=== PATIENT | female | born 1950 | race African-American/Black ===

== ENCOUNTER 2018-12-26 07:29 | Inpatient (IN) | payer BC ==
[2018-12-22 11:08] VITALS: BMI 29.2
[2018-12-26] MEDS: oxyCODONE HCL 10 MG SUSTAINED ACTING TABLET PO ONE ×2 (09:03→15:04)
[2018-12-26] MEDS ORDERED: GUM MASTIC/STORAX/MSAL/ALCOHOL 1 DRP DROPSBTL MC ONE (10:48)
[2018-12-26] MEDS ORDERED: THROMBIN (RECOMBINANT) 5,000 UNIT VIAL TP ONE (10:48)
[2018-12-26] MEDS ORDERED: MIDAZOLAM HCL 2 MG/2 ML SINGLE DOSE VIAL ONE ×2 (10:52→11:40)
[2018-12-26] MEDS ORDERED: BUPIVACAINE LIPOSOME/PF (EXPAREL) 266 MG/20 ML VIAL ONE (10:52)
[2018-12-26] MEDS ORDERED: BUPIVACAINE HCL/PF 2.5 MG/ML - 30 ML VIAL IJ ONE (10:52)
--- NOTE | 2018-12-26 10:55 | HP ---
History & Physical Update - History History: No Change - Physical Physical: No Change - Assessment Assessment: No Change - Plan Plan: No Change
[2018-12-26] MEDS ORDERED: ceFAZolin SODIUM 1 GM VIAL ONE (11:40)
[2018-12-26] MEDS ORDERED: DEXAMETHASONE SOD PHOSPHATE 4 MG/1 ML VIAL ONE (11:40)
[2018-12-26] MEDS ORDERED: ONDANSETRON 4 MG/2 ML VIAL ONE (11:40)
[2018-12-26] MEDS ORDERED: oxyCODONE HCL 5 MG TABLET PO PRN (14:03)
--- NOTE | 2018-12-26 14:03 | OP ---
Operative Note - Note: Operative Date: 12/26/18 Pre-Operative Diagnosis: lumbar sponhylolisthesis Operation: posterior decompression, instrumentation, fusion. transforaminal interbody lumbar fusion of L4-L5 with allograft and neuromonitoring Surgeon: Hema Gibbs Line Camera Operator: Susie Leslie Anesthesiologist/TEAM ASSISTANT: Volodymyr Bellamy Anesthesia: Spinal Estimated Blood Loss (mls): 20 Fluid Volume Replaced (mls): 300 Operative Report Dictated: Yes
--- NOTE | 2018-12-26 14:04 | SURG ---
Surgery Lifts And Cranes Inspector Note Lifts And Cranes Inspector: Susie Leslie PA-C Date of Service: 12/26/18 Diagnosis: lumbar spondylolisthesis Procedure: posterior lumbar decompression, instrumentation, fusion. transforaminal interbody lumbar fusion of L4-L5 with allograft and neuromonitoring I was present for the entirety of the operative procedure. For further detail, please refer to operative report. Visit type - Case Type Case Type: Scheduled - Emergency Emergency Visit: No - New patient This patient is new to me today: Yes Date on this admission: 12/26/18
[2018-12-26] MEDS: ONDANSETRON 4 MG/2 ML VIAL IVPUSH PRN (14:12)
[2018-12-26] MEDS ORDERED: ACETAMINOPHEN 325 MG TABLET (FP) PO SCH (14:15)
[2018-12-26] MEDS ORDERED: LACTATED RINGERS SOLUTION 1,000 ML IV SCH (14:15)
[2018-12-26] MEDS ORDERED: ACETAMINOPHEN 1000 MG/100 ML VIAL (NON FORMULARY) IVPB SCH (16:00)
[2018-12-26] MEDS: diazePAM 2 MG TABLET PO SCH (17:33)
[2018-12-26] MEDS: CEFAZOLIN 1 GM in DEXTROSE 5%-WATER - 50 ML IVPB SCH (19:22)
[2018-12-26] MEDS: oxyCODONE HCL 5 MG TABLET PO PRN (19:23)
--- NOTE | 2018-12-26 20:34 | OP ---
DATE OF OPERATION: 12/26/2018 PREOPERATIVE DIAGNOSES: 1. Spondylolisthesis, L4-5. 2. Spinal stenosis at L4-5. POSTOPERATIVE DIAGNOSES: 1. Spondylolisthesis, L4-5. 2. Spinal stenosis at L4-5. PROCEDURE PERFORMED: 1. Transforaminal lumbar interbody fusion, L4-5. 2. Placement of instrumentation. 3. Placement of cage. SURGEON: Hema Gibbs MD ADOBE ARCHITECT: LILLIAN Ashraf ESTIMATED BLOOD LOSS: 50 mL. INTRAVENOUS FLUIDS: Per Anesthesia. ANESTHESIA: Spinal/TLIP. COMPLICATIONS: None. DISPOSITION: Patient was brought to the PACU in stable condition. INDICATION FOR SURGERY: The patient is a 68-year-old female who has been suffering from pain from her back down her legs. X-rays and MRI were completed which noted that she had spinal stenosis at L4-5 secondary to a spondylolisthesis. She had gone through an exhaustive course of treatment for this which included medications, physical therapy, as well as injections. Unfortunately, her pain continued to persist despite all this. At this point, risks, benefits, and alternatives were discussed, and the patient consented to surgery. DESCRIPTION OF PROCEDURE: Patient was brought to the operating room by the anesthesia staff. After appropriate patient identification was performed, spinal anesthesia was given along with a TLIP block. Patient was able to position herself prone onto the OR table with all areas of bony prominences well padded at this time. The C-arm was brought in. The L4 and L5 pedicles were marked off. Her back was prepped and draped in a sterile manner. At this point, timeout was completed. Incisions were made bilaterally over the L4 and L5 pedicles. Dissection was carried down to the fascia. Fascia was split at this time. Under C-arm guidance, trocars were advanced into both the L4 and L5 pedicles. Through the trocars, wire was inserted. Over the wire, tap was performed, and screws were inserted. On the left-hand side, retractor blades were set up to expose the L4-5 facet joint. The facet joint was identified, and it was removed. The disk was entered using a series of pituitaries, Kerrisons, and curettes. A diskectomy was completed. The endplates were decorticated at this time. Bone graft was laid down. A cage filled with bone graft was placed in. Tulip pads were placed over the screws. A momo was measured and placed in. Caps were placed on. Compression was applied, and final tightening was performed. On the right-hand side, a momo was measured and placed in. Caps and compression were applied. Final tightening was performed. All extra instrumentation was removed at this time. AP and lateral x-rays confirmed the instrumentation to be in good position. The fascia was closed with a No. 1 Vicryl suture. Subcutaneous tissue was closed with 2-0 Vicryl suture. Skin was closed with 3-0 Monocryl suture. Dermabond was applied. Steri-Strips were applied. A sterile dressing was applied. Patient was placed supine on the OR bed and brought to the PACU in stable condition. Johana HURLEY/[id number] MTDD
[2018-12-27] MEDS: ACETAMINOPHEN 325 MG TABLET (FP) PO SCH ×3 (00:09→12:15)
[2018-12-27] MEDS ORDERED: PT OWN MED DRAWER 7, Y5N ONE (03:07)
[2018-12-27] MEDS: CEFAZOLIN 1 GM in DEXTROSE 5%-WATER - 50 ML IVPB SCH (03:23)
[2018-12-27] MEDS: oxyCODONE HCL 5 MG TABLET PO PRN ×3 (03:32→12:15)
[2018-12-27] MEDS: diazePAM 2 MG TABLET PO SCH (05:19)
[2018-12-27 06:26] VITALS: TEMP 98.8
[2018-12-27 07:01] LABS: HEMOGLOBIN 9.9 GM/dl (10.7-15.3); MCH 26.6 pg (25.7-33.7); MCHC 33.2 g/dl (32.0-36.0); MEAN CELL VOLUME 80.2 fl (80-96); MEAN PLT VOLUME 7.2 fl (7.5-11.1); PLATELET COUNT 200 K/MM3 (134-434); RBC 3.73 M/mm3 (3.60-5.2); RDW 13.3 % (11.6-15.6); WHITE BLOOD COUNT 7.9 K/mm3 (4.0-10.8)
[2018-12-27 07:09] LABS: ANION GAP 8 MMOL/L (8-16); BLOOD UREA NITROGEN 11 mg/dl (7-18); CHLORIDE 98 mmol/L (98-107); CO2 28 mmol/L (21-32); CREATININE 0.6 mg/dl (0.55-1.3); GLUCOSE,RANDOM 123 mg/dl (74-106); POTASSIUM 3.8 mmol/L (3.5-5.1); SODIUM 134 mmol/L (136-145)
--- NOTE | 2018-12-27 08:51 | PN ---
Progress Note (short form) - Note Progress Note: ANESTHESIA POSTOP 68 YO female POD#1 s/p L4-5 fusion, spinal anesthesia and PNB Patient sitting in chair without complaint. Pain is "tolerable" a VSS, afebrile Encouraged IS and ambulation Continue current care.
[2018-12-27] MEDS: ONDANSETRON 4 MG/2 ML VIAL IVPUSH PRN (09:06)
[2018-12-27 10:00] VITALS: BP 110/56; PULSE 66
[2018-12-27] MEDS ORDERED: amLODIPine BESYLATE 5 MG TABLET (FP) PO SCH (10:00)
[2018-12-27] MEDS ORDERED: LOSARTAN 50MG/HCTZ 12.5MG 1 TAB (FP) PO SCH (10:00)
--- NOTE | 2018-12-27 11:44 | DS ---
Physical Exam: SUBJECTIVE: Patient seen and examined this am. She is having some left leg pain , improved since the OR. She had emesis last night. No nausea this am. No abd pain/CP or SOB. Voiding on her own. She ambulated last pm with the nursing staff. OBJECTIVE: Vital Signs Temperature 98.8 F 12/27/18 09:58 Pulse Rate 66 12/27/18 09:58 Respiratory Rate 20 12/27/18 09:58 Blood Pressure 110/56 L 12/27/18 09:58 O2 Sat by Pulse Oximetry (%) 98 12/27/18 06:24 PHYSICAL EXAM GENERAL: The patient is awake, alert, and fully oriented, in no acute distress. HEART: Regular rate and rhythm. ABDOMEN: Soft, nontender, nondistended, no guarding. EXTREMITIES: 2+ pulses, warm, well-perfused, no edema. No calf tenderness b/l. NEUROLOGICAL: Normal speech, gait not observed. PSYCH: Normal mood, normal affect. NEURO: 5/5 dorsi/plantar flexion b/l. BACK: Dressing c/d/i. No masses, area is soft. LABS CBC,CMP WBC 7.9 K/mm3 (4.0-10.8) 12/27/18 06:30 RBC 3.73 M/mm3 (3.60-5.2) 12/27/18 06:30 Hgb 9.9 GM/dl (10.7-15.3) L 12/27/18 06:30 Hct 30.0 % (32.4-45.2) L 12/27/18 06:30 MCV 80.2 fl (80-96) 12/27/18 06:30 MCH 26.6 pg (25.7-33.7) 12/27/18 06:30 MCHC 33.2 g/dl (32.0-36.0) 12/27/18 06:30 RDW 13.3 % (11.6-15.6) 12/27/18 06:30 Plt Count 200 K/MM3 (134-434) 12/27/18 06:30 MPV 7.2 fl (7.5-11.1) L 12/27/18 06:30 Sodium 134 mmol/L (136-145) L 12/27/18 06:30 Potassium 3.8 mmol/L (3.5-5.1) 12/27/18 06:30 Chloride 98 mmol/L (98-107) 12/27/18 06:30 Carbon Dioxide 28 mmol/L (21-32) 12/27/18 06:30 Anion Gap 8 MMOL/L (8-16) 12/27/18 06:30 BUN 11 mg/dl (7-18) 12/27/18 06:30 Creatinine 0.6 mg/dl (0.55-1.3) 12/27/18 06:30 Creat Clearance w eGFR 100.02 (>60) 12/27/18 06:30 Random Glucose 123 mg/dl (74-106) H 12/27/18 06:30 Calcium 9.0 mg/dl (8.5-10) 12/27/18 06:30 HOSPITAL COURSE: The patient was admitted to the Med-Surg Unit after an elective repair of their L4-L5 lumbar spondylolisthesis. Now, s/p L4-5 TLIF. The day of surgery, the patient ambulated the hallways with assistance. Narcotic and non-narcotic pain management control was achieved with an oral and IV approach. An xray was obtained and confirmed hardware placement at L4-L5, no fractures or dislocations. Frannie-operative IV ABX were administered. DVT prophylaxis was achieved with SCDs and early ambulation. The patient ambulated with Physical Therapy and no services were recommended upon discharge. Narcotic scripts and or muscle relaxants were checked with [employer] [employer] prior to escibe. The discharge instructions and an oral pain management plan were reviewed with the patient. All questions answered. Above plan discussed with Dr. Gibbs and agreed. Date of Admission:12/26/18 Date of Discharge: 12/27/18 Minutes to complete discharge: 20 Visit type - Case Type Case Type: Scheduled - Emergency Emergency Visit: No - New patient This patient is new to me today: No - Critical Care Critical Care patient: No
[2018-12-27] MEDS ORDERED: ATORVASTATIN CA 20 MG TABLET (FP) PO SCH (22:00)
== END 2018-12-27 13:02 | disposition home or self-care (01) | DRG 455 ==
LOC: FM/S 07:29
PROVIDERS: ADMIT Orthopaedic Surgery Orthopaedic Surgery of the Spine; ATTEND Orthopaedic Surgery Orthopaedic Surgery of the Spine
PROC: 0SG0071 Fusion of Lumbar Vertebral Joint with Autologous Tissue Substitute, Posterior Approach, Posterior Column, Open Approach (ICD-10-PCS; 2018-12-26)
PROC: 0SB20ZZ Excision of Lumbar Vertebral Disc, Open Approach (ICD-10-PCS; 2018-12-26)
PROC: 0SG00AJ Fusion of Lumbar Vertebral Joint with Interbody Fusion Device, Posterior Approach, Anterior Column, Open Approach (ICD-10-PCS; principal; 2018-12-26 09:45)
DX: M43.16 Spondylolisthesis, lumbar region (principal); M48.061 Spinal stenosis, lumbar region without neurogenic claudication
CPT/HCPCS: 36415; 72100-TC-FY; 76000-TC-FY; 80048; 85027; 94760; 97116-GP; 97162-GP; J0131